=== PATIENT | male | born 1995 | race African-American/Black ===

== ENCOUNTER 2019-06-23 07:22 | Emergency (ER) | payer OTHER ==
[~2019-06-23] VITALS: Ht 180.3 cm; Wt 68.0 kg
[2019-06-23 09:53] VITALS: BP 112/70
== END 2019-06-23 09:56 | disposition home or self-care (01) ==
LOC: ER 07:22
DX: G89.29 Other chronic pain (principal); F12.10 Cannabis abuse, uncomplicated; J45.909 Unspecified asthma, uncomplicated; Z98.890 Other specified postprocedural states
CPT/HCPCS: 99283

== ENCOUNTER 2024-09-07 02:27 | Emergency (ER) | payer MEDICAID, OTHER ==
[~2024-09-07] VITALS: Ht 180.3 cm; Wt 85.7 kg
[2024-09-07 02:54] VITALS: BP 118/70; PULSE 64; RESP 18; TEMP 36.8; O2SAT 100
[2024-09-07] MEDS: KETOROLAC 15MG/ML VIAL IM ONE (04:13)
[2024-09-07] MEDS ORDERED: NAPR-1176 MT (05:10)
[2024-09-07] MEDS ORDERED: LIDO700A15 TP (05:10)
== END 2024-09-07 05:18 | disposition home or self-care (01) ==
LOC: ER 02:27
DX: M79.605 Pain in left leg (principal); J45.909 Unspecified asthma, uncomplicated; F12.90 Cannabis use, unspecified, uncomplicated; Z98.890 Other specified postprocedural states
CPT/HCPCS: 99285; 93971; 96372; J1885